=== PATIENT | male | born 1945 | race Caucasian/White ===

== ENCOUNTER 2017-04-22 16:47 | Emergency (ER) | payer MEDICARE, OTHER ==
[2017-04-22 18:27] LABS: HEMOGLOBIN 15.3 gm/dl (14.0-17.5)
== END 2017-04-23 00:02 | disposition home or self-care (01) ==
LOC: ER1 16:47
PROVIDERS: Family Medicine
DX: J44.1 Chronic obstructive pulmonary disease with (acute) exacerbation (principal); I25.10 Atherosclerotic heart disease of native coronary artery without angina pectoris; I10 Essential (primary) hypertension; F17.210 Nicotine dependence, cigarettes, uncomplicated; Z95.5 Presence of coronary angioplasty implant and graft
CPT/HCPCS: 36415; 36600; 71010; 80053; 82550; 82553; 82803; 83874; 84484; 85025; 85379; 93005; 94640; 94664; 96374; 99285; J2930; J7050; Q9963